=== PATIENT | male | born 1995 ===

== ENCOUNTER 2016-06-01 21:01 | Emergency (ER) | payer BC ==
[2016-06-01 21:15] VITALS: BP 123/66; PULSE 71; RESP 18; O2SAT 98
--- NOTE | 2016-06-01 21:35 | C.PDOC ---
History Of Present Illness A 20 year old male presents to the emergency room with complaints of a cyst on top of his scalp for many years. Patient reports that the cyst has recently become red and infected. Patient also notes some yellow discharge coming out of the cyst. Patient denies any fever, chills, headaches, dizziness, or any other complaints. Time Seen by Provider: 06/01/16 21:15 Chief Complaint (Nursing): Abnormal Skin Integrity History Per: Patient History/Exam Limitations: no limitations Onset/Duration Of Symptoms: Other (Many years) Current Symptoms Are (Timing): Still Present Quality Of Symptoms: Draining (Yellow discharge) Severity: Mild Recent travel outside of the [place]: No Past Medical History Reviewed: Historical Data, Nursing Documentation, Vital Signs Vital Signs: Last Vital Signs Temp Pulse 71 06/01/16 21:13 Resp 18 06/01/16 21:13 BP 123/66 06/01/16 21:13 Pulse Ox 98 06/01/16 23:03 Family History: States: No Known Family Hx - Social History Hx Alcohol Use: No Hx Substance Use: No Review Of Systems Except As Marked, All Systems Reviewed And Found Negative. Constitutional: Negative for: Fever, Chills Gastrointestinal: Negative for: Nausea, Vomiting, Diarrhea Skin: Positive for: Other (Cyst on top of the head. Yellow discharge coming out of it. Became red and infected. ) Neurological: Negative for: Headache, Dizziness Physical Exam - Physical Exam Appears: Well, Non-toxic, No Acute Distress Skin: Normal Color, Warm, Dry Head: No Tenderness, No Swelling, Other (2x3 cm epidermoid cyst thats tender, erythematous, and draining thick yellow purulent discharge.) Eye(s): bilateral: Normal Inspection Oral Mucosa: Moist Neck: Normal ROM, No Midline Cervical Tenderness, No Paracervical Tenderness Cardiovascular: Rhythm Regular Respiratory: Normal Breath Sounds, No Rales, No Rhonchi, No Wheezing Gastrointestinal/Abdominal: Soft, No Tenderness, No Guarding, No Rebound Back: No CVA Tenderness, No Vertebral Tenderness Extremity: Normal ROM, No Tenderness Neurological/Psych: Oriented x3, Normal Speech, Normal Cognition ED Course And Treatment O2 Sat by Pulse Oximetry: 98 - Incision & Drainage Of Abscess Anesthesia: Lidocaine 1% Prep Used: Sterile Water, Betadine Procedure: Incised W/Scalpel Blade#: (11), Drained Pus, Irrigated Cavity W/ Saline, Probed To Break Up Loculations, Packed W/Gauze Medical Decision Making Medical Decision Making: Impression: 20 yo M with infected epidermoid cyst to the scalp. 2x3 cm epidermoid cyst noted on PE. Will do an I&D. Tetanus UTD. Plan: Keflex po, bactrim po and naprosyn po given. Progress Notes: finance vice president (Thuan) assisted with incision and drainage. Patient advised to return to the ER after 2 days for wound check. Rx provided. Disposition - Disposition Referrals: Miguel Ken MD [Staff Provider] - Disposition: HOME/ ROUTINE Disposition Time: 21:44 Condition: GOOD Additional Instructions: Take medications as prescribed, return to the ER after 2 days for wound check and packing removal. 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 - Scribe Statement The provider has reviewed the documentation as recorded by the Mel Peoples Provider Scribe Attestation: All medical record entries made by the Rondaibelliott were at my direction and personally dictated by me. I have reviewed the chart and agree that the record accurately reflects my personal performance of the history, physical exam, medical decision making, and the department course for this patient. I have also personally directed, reviewed, and agree with the discharge instructions and disposition.
[2016-06-01] MEDS ORDERED: Naproxen 550 mg Tab PO STA (21:42)
[2016-06-01] MEDS ORDERED: Tmp-Smz 800 mg-160 mg DS Tab PO STA (21:42)
[2016-06-01] MEDS ORDERED: Tmp-Smz 800 mg-160 mg DS Tab ONE (21:50)
[2016-06-01] MEDS ORDERED: Naproxen 550 mg Tab PO ONE (21:50)
== END 2016-06-01 22:13 | disposition home or self-care (01) ==
LOC: C.ER 21:01 → MERGE 21:01 → C.ER 22:13
DX: L02.811 Cutaneous abscess of head [any part, except face] (principal); L72.0 Epidermal cyst

== ENCOUNTER 2016-06-03 19:26 | Emergency (ER) | payer BC ==
[2016-06-03 19:52] VITALS: BP 116/74; PULSE 72; RESP 18; TEMP 97.8; O2SAT 98
--- NOTE | 2016-06-03 19:58 | C.PDOC ---
History Of Present Illness The patient, a 20 y/o male, presents to the ED for a wound check. Patient was evaluated in ED 2 days ago for an abscess on his scalp and underwent an I&D procedure. Patient states he has not started taking antibiotics that were prescribed. Patient denies fever, chills, and pain at this time. Time Seen by Provider: 06/03/16 19:55 Chief Complaint (Nursing): Wound Check History Per: Patient History/Exam Limitations: no limitations Onset/Duration Of Symptoms: Days Ago (2) Current Symptoms Are (Timing): Still Present Quality Of Symptoms: denies: Painful Additional History Per: Patient Past Medical History Reviewed: Historical Data, Nursing Documentation, Vital Signs Vital Signs: Last Vital Signs Temp 97.8 F 06/03/16 19:39 Pulse 72 06/03/16 19:39 Resp 18 06/03/16 20:03 BP 116/74 06/03/16 19:39 Pulse Ox 98 06/04/16 01:23 - Medical History PMH: No Chronic Diseases Surgical History: No Surg Hx Family History: States: Unknown Family Hx - Social History Hx Alcohol Use: No Hx Substance Use: No - Immunization History Hx Tetanus Toxoid Vaccination: Yes Hx Influenza Vaccination: Yes Hx Pneumococcal Vaccination: No Review Of Systems Except As Marked, All Systems Reviewed And Found Negative. Constitutional: Negative for: Fever, Chills Skin: Positive for: Other (+wound check following an I&D of scalp abscess. no pain currently ) Physical Exam - Physical Exam Appears: Non-toxic, No Acute Distress Skin: Normal Color, Warm, Dry Head: Atraumatic, Normacephalic, Other (+packed wound with local induration to mid-frontal scalp. no active drainage of blood or pus ) Eye(s): bilateral: Normal Inspection, EOMI Oral Mucosa: Moist Neck: Supple Extremity: Normal ROM Neurological/Psych: Oriented x3, Normal Speech, Normal Cognition Gait: Steady ED Course And Treatment O2 Sat by Pulse Oximetry: 98 (on RA) Pulse Ox Interpretation: Normal Progress Note: Packing was removed and wound was irrigated with NS. Upon examination, wound appeared clear with no purulence or fluctuant mass. Patient is resting comfortably, showing no signs of distress, and is stable for discharge. Patient is adivsed to follow up with surgeon within a timely manner and take PO antibiotics as prescribed. 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 - Scribe Statement The provider has reviewed the documentation as recorded by the Scribe (Zuly Yin) All medical record entries made by the Scribe were at my direction and personally dictated by me. I have reviewed the chart and agree that the record accurately reflects my personal performance of the history, physical exam, medical decision making, and the department course for this patient. I have also personally directed, reviewed, and agree with the discharge instructions and disposition.
== END 2016-06-03 20:04 | disposition home or self-care (01) ==
LOC: C.ER 19:26 → MERGE 19:26 → C.ER 20:04
DX: Z48.00 Encounter for change or removal of nonsurgical wound dressing (principal)

== ENCOUNTER 2016-06-21 10:25 | Day surgery (SDC) | payer BC ==
[2016-06-16 08:32] VITALS: BMI 28.3
[2016-06-21] MEDS ORDERED: Bupivacaine/Epi 0.25%-1:200,000 10 ml PF inj IJ ONE (12:10)
[2016-06-21] MEDS ORDERED: Lidocaine 1% Inj (20ml) ONE (12:10)
[2016-06-21] MEDS ORDERED: Bupivacaine HCl 0.25% PF (10 ml) Inj ONE (12:14)
[2016-06-21] MEDS ORDERED: Lidocaine 2% w Epi 1:100,000 Inj IJ ONE (12:14)
[2016-06-21] MEDS ORDERED: Lactated Ringer's 1,000 ML IV ONE (12:15)
[2016-06-21] MEDS: ceFAZolin IV 2 gm in Dextrose 1 GM/50 ML BAG IVPB ONE ×2 (12:20→12:30)
[2016-06-21] MEDS ORDERED: Midazolam 2 MG/2 ML VIAL ONE (12:28)
[2016-06-21] MEDS ORDERED: Propofol 10 mg/ml Inj (20 ML) ONE (12:28)
[2016-06-21] MEDS ORDERED: HYDROmorphone 0.5 mg/0.5 ml ISec IVP PRN (13:11)
[2016-06-21] MEDS ORDERED: Oxycodone/Acetaminophen 5/325 mg Tab PO PRN (13:13)
--- NOTE | 2016-06-21 13:13 | PCM.SURG1 ---
Surgeon's Initial Post Op Note - Surgeon's Notes Surgeon: Dorina Clock And Watch Hands Painter: Michael FOY Type of Anesthesia: IV Sedation, Local Pre-Operative Diagnosis: Sebaceous cyst on head Operative Findings: same Post-Operative Diagnosis: same Operation Performed: excision of sebaceous cyst Specimen/Specimens Removed: sebaceous cyst Estimated Blood Loss: EBL {In ML}: 10 Blood Products Given: N/A Drains Used: No Drains Post-Op Condition: Good Date of Surgery/Procedure: 06/21/16 Time of Surgery/Procedure: 13:12
[2016-06-21] MEDS ORDERED: Lactated Ringer's 1,000 ML IV SCH (13:15)
[2016-06-21 13:26] VITALS: O2SAT 100
--- NOTE | 2016-06-21 14:34 | OP ---
PROCEDURE DATE: 06/21/2016 PREOPERATIVE DIAGNOSIS: Sebaceous cyst of the scalp. POSTOPERATIVE DIAGNOSIS: Infected sebaceous cyst of the scalp, 4 x 4 cm in size. PROCEDURE DONE: Excision of sebaceous cyst of the scalp. SURGEON: Isaac aCm MD PARAMEDIC: Brice Rodriguez. ANESTHESIA: Local anesthesia plus sedation. ESTIMATED BLOOD LOSS: Around 10 mL. DRAINS: None. PATHOLOGY: The sebaceous cyst with overlying necrotic skin was sent for pathology. COMPLICATIONS: None. INTRAOPERATIVE FINDINGS: The patient had a large sebaceous cyst of the mid parietal scalp of approxi mately 4 x 4 cm in size. INTRAOPERATIVE STEPS: This 20-year-old male who was diagnosed with a sebaceous cyst of the scalp and patient was treated with oral antibiotics. The patient was consented for the excision of sebaceous cyst of the scalp. Brought to the OR, placed supine on operating table. After induction of the sedation, the local anes thesia was injected, and after that an elliptical stab incision was made on the skin and upper and lo wer flap was created. The sebaceous cyst was dissected free from the underlying structures, and the dissection was continued to remove the whole cyst intact and it was sent off the table for the pathol ogy. The hemostasis was achieved and the wound was closed in 1 layer with 3-0 nylon interrupted sutu res, and a dry sterile dressing was applied. The patient tolerated the procedure well. Count of ins truments and gauze was correct. There was no apparent complication. The patient was reversed from s edation in the OR and sent to the postanesthesia care unit in stable condition. Isaac Cam MD cc: [id number] TT: 06/21/2016 14:33:28 [place]
[2016-06-21 15:52] VITALS: BP 116/70; PULSE 68; RESP 20; TEMP 97.9
== END 2016-06-21 15:50 | disposition home or self-care (01) ==
LOC: C.SDS 10:25
PROVIDERS: ATTEND Surgery Surgical Critical Care
DX: L72.3 Sebaceous cyst (principal)
CPT/HCPCS: 11424; 88304; J0690; J1170; J2250; J2704; J3010; J7120